=== PATIENT | female | born 1995 | race Two or more races ===

== ENCOUNTER 2022-03-21 19:57 | Emergency (ER) | payer SELFPAY ==
[2022-03-21 21:21] LABS: HEMOGLOBIN 13.2 gm/dl (12.3-15.3); RED BLOOD COUNT 4.1 M/UL (4.00-5.10); WHITE BLOOD COUNT 9.5 K/UL (4.5-11.0)
[2022-03-21 21:55] LABS: BUN/CREATININE RATIO 11 (0-10)
[2022-03-25 16:10] LABS: CHLAMYDIA TRACHOMATIS, NAA Negative (Negative); NEISSERIA GONORRHOEAE, NAA Negative (Negative)
== END 2022-03-21 22:50 | disposition left against medical advice (07) ==
LOC: ER1 19:57
PROVIDERS: Physician Assistant
DX: R10.2 Pelvic and perineal pain (principal); R10.30 Lower abdominal pain, unspecified; R10.817 Generalized abdominal tenderness; R40.2410 Glasgow coma scale score 13-15, unspecified time
CPT/HCPCS: 80053; 81001; 83690; 83735; 84703; 85025; 87086; 99283